=== PATIENT | female | born 1945 | race Caucasian/White ===

== ENCOUNTER 2016-06-06 02:18 | Inpatient (IN) | payer MEDICARE, MEDICAID ==
[~2016-06-06] VITALS: Ht 172.7 cm; Wt 67.1 kg
[~2016-06-06 02:18] MED LIST: HYDR-552 PO
--- NOTE | 2016-06-06 02:27 | NUR ---
PT AAL.OX4 BUT SLOW TO ANSWER, PT STATES SHE TOOK A NORCO AND DRANK 2 GLASSES OF WINE, PT EMS PT WAS FOUND DOWN ON THE BATHROOM FLOOR, PT HAS BRUISING TO THE RIGHT EYEBROW, AND IS C.O LEFT BREAST PAIN AND LEFT UPPER ARM PAIN, PT ON MONITOR, IV PLACED, MD IN ROOM, EKG DONE, WILL CONTINUE TO MONITOR.
[2016-06-06] MEDS ORDERED: IV NS 0.9% 1,000 ML BAG IV ONE (02:30)
[2016-06-06] MEDS ORDERED: IV NS 0.9% 1,000 ML ONE ×2 (02:31→05:12)
[2016-06-06] MEDS ORDERED: IV SET PRIMARY 1 EA INFUS.SET MC ONE ×2 (02:31→03:37)
[2016-06-06 02:43] LABS: BASOPHILS % (AUTO) 0.4 % (0.0-2.0); EOSINOPHILS # (AUTO) 0.1 /CMM (0.0-0.7); EOSINOPHILS % (AUTO) 0.8 % (0.0-6.0); HEMATOCRIT 45 % (33-45); HEMOGLOBIN 14.9 g/dL (11.5-14.8); LYMPHOCYTES # (AUTO) 1.4 /CMM (0.8-4.8); LYMPHOCYTES % (AUTO) 10.4 % (20.0-44.0); MEAN CORPUSCULAR HEMOGLOBIN 28 PG (26.0-33.0); MEAN CORPUSCULAR HGB CONC 33 g/dl (31.0-36.0); MEAN CORPUSCULAR VOLUME 84 fL (82-100); MONOCYTES # (AUTO) 0.6 /CMM (0.1-1.30); MONOCYTES % (AUTO) 4.4 % (2.0-12.0); NEUTROPHILS # (AUTO) 11.1 /CMM (1.8-8.9); PLATELET COUNT (AUTO) 377 /CMM (150-450); RDW COEFFICIENT OF VARIATION 13.9 (11.5-15.0); RED BLOOD CELL COUNT(AUTO) 5.32 MIL/uL (4.0-5.2); WHITE BLOOD COUNT (AUTO) 13.2 K/uL (4.3-11.0)
[2016-06-06 02:59] LABS: ALBUMIN 3.7 g/dL (3.4-5.0); BILIRUBIN,DIRECT 0.1 mg/dL (0.0-0.2); BILIRUBIN,TOTAL 0.3 mg/dL (0.2-1.0); CALCIUM, SERUM 9.6 mg/dL (8.5-10.1); CREATININE 0.7 mg/dL (0.6-1.3); POTASSIUM 2.9 mmol/L (3.5-5.1); TOTAL PROTEIN, SERUM 7.7 g/dL (6.4-8.2)
[2016-06-06 03:00] LABS: INR 0.94 (0.87-1.13)
[2016-06-06] MEDS ORDERED: HYDROMORPHONE 1 MG/1 ML DISP.SYRIN IV ONE (03:30)
[2016-06-06] MEDS ORDERED: CEFTRIAXONE 1 G in IV D5W 50 ML IV ONE (03:30)
[2016-06-06] MEDS ORDERED: HYDROMORPHONE 1 MG/1 ML DISP.SYRIN ONE ×2 (03:36→06:46)
[2016-06-06] MEDS ORDERED: CEFTRIAXONE 1GM BAG (ER ONLY) 50 ML IV ONE (03:37)
[2016-06-06] MEDS ORDERED: ZOLPIDEM TARTRATE 5 MG TABLET PO PRN (04:00)
[2016-06-06] MEDS ORDERED: HYDROCODONE/APAP 5/325MG 1 EACH TABLET PO PRN (04:00)
[2016-06-06] MEDS ORDERED: ACETAMINOPHEN 325 MG TABLET PO PRN (04:00)
[2016-06-06] MEDS ORDERED: HYDROCODONE/APAP 10/325MG 1 EA TABLET PO PRN (04:00)
[2016-06-06] MEDS ORDERED: MAGNESIUM HYDROXIDE 30 ML UDC PO PRN (04:00)
[2016-06-06] MEDS ORDERED: Z GUARD REMEDY 2 OZ OINT TP PRN (04:00)
[2016-06-06] MEDS ORDERED: MAG HYDROX/AL HYDROX/SIMETH 30 ML UDC PO PRN (04:00)
[2016-06-06 04:35] VITALS: BP 145/92
[2016-06-06] MEDS ORDERED: ONDANSETRON HCL/PF 4 MG/2 ML VIAL ONE (04:44)
[2016-06-06] MEDS ORDERED: IV SET PRIMARY PUMP SET 1 EA INFUS.SET MC ONE (04:44)
[2016-06-06] MEDS: ONDANSETRON HCL/PF 4 MG/2 ML VIAL IVP PRN ×4 (04:49→21:23)
[2016-06-06 05:00] LABS: PHOSPHORUS 2.7 mg/dL (2.5-4.9)
[2016-06-06] MEDS: IV NS 0.9% 1,000 ML IV PRN ×2 (05:18→21:23)
--- NOTE | 2016-06-06 06:51 | NUR ---
MS RN NOTES RECEIVED PTS FROM ER NURSE A 70 YEARS OLD FEMALE A/O X4 ABLE TO MAKE NEEDS KNOWN , NO SOB NO DISTRESS NOTED, WITH ADMITTING DX OF MASTITIS , ALL NEEDS ATTENDED TOO CALL LIGHT WITHIN REACH KEPT PTS CLEAN DRY AND COMFORTABLE ON RFA G#18 WITH NS AT 75CC/HR INFUSING WELL , WILL ENDORSE TO RN DAY SHIFT FOR CONTINUITY OF CARE
[2016-06-06] MEDS: HYDROMORPHONE 1 MG/1 ML DISP.SYRIN IV PRN ×3 (06:55→21:24)
--- NOTE | 2016-06-06 07:15 | NUR ---
RN INITIAL NOTE PT RECEIVED IN BED, RESTING COMFORTABLY. AWAKE, ALERT AND ORIENTED. ABLE TO MAKE NEEDS KNOWN. NO S/S OF PAIN DOES HAVE NAUSEA. RESPIRATIONS ARE EVEN AND UNLABORED. NO S/S OF RESPIRATORY DISTRESS OR SOB. SKIN IS WARM AND DRY TO TOUCH. IV SITE FLUSHED AND PATENT. DRESSING C/D/I. SAFETY PRECAUTIONS IMPLEMENTED. BED IN LOCKED, LOW POSITION. TWO SIDE RAILS UP. BELONGINGS AND CALL LIGHT WITHIN REACH. WILL CONTINUE TO MONITOR.
--- NOTE | 2016-06-06 07:32 | NUR ---
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
[2016-06-06 08:00] VITALS: BP 116/79
[2016-06-06] MEDS: PANTOPRAZOLE 40 MG TABLET.DR PO SCH (08:02)
[2016-06-06] MEDS ORDERED: POTASSIUM CHLORIDE 20 MEQ TAB.PRT.SR PO ONE (09:13)
[2016-06-06] MEDS ORDERED: VANCOMYCIN 1 GM in IV D5W 250 ML IV SCH (10:30)
[2016-06-06] MEDS: HYDROCODONE/APAP 10/325MG 1 EA TABLET PO PRN (11:10)
[2016-06-06] MEDS ORDERED: FEE PK DOSING 1 MIN EA MC ONE (11:23)
[2016-06-06] MEDS ORDERED: SECONDARY IV SET 1 EA INFUS.SET MC ONE (12:51)
[2016-06-06] MEDS: VANCOMYCIN 0.75 GM in IV D5W 250 ML IV SCH (12:53)
[2016-06-06 16:00] VITALS: BP 139/79
--- NOTE | 2016-06-06 19:13 | NUR ---
RN CLOSING NOTE PT RESTING IN BED COMFORTABLY. ALL MD ORDERS CARRIED OUT. PATIENT KEPT CLEAN AND DRY. SAFETY PRECAUTIONS IN PLACE AT ALL TIMES. WILL GIVE REPORT TO PM RN FOR BRIGETTE.
[2016-06-06 20:00] VITALS: BP 142/82
[2016-06-07] MEDS: VANCOMYCIN 0.75 GM in IV D5W 250 ML IV SCH ×2 (00:51→12:46)
--- NOTE | 2016-06-07 01:44 | NUR ---
RN NOTES: THE PREVIOUS IV ACCESS IS REMOVED BECAUSE OF INFILTRATION. NEW IV ACCESS GAUGE 22 IS ESTABLISHED ON THE LEFT FOREARM. WILL CONTINUE TO MONITOR.
[2016-06-07] MEDS: HYDROMORPHONE 1 MG/1 ML DISP.SYRIN IV PRN ×3 (02:03→10:40)
[2016-06-07] MEDS ORDERED: CEFTRIAXONE 1 G in IV D5W 50 ML IV SCH (03:00)
[2016-06-07] MEDS ORDERED: SECONDARY IV SET 1 EA INFUS.SET MC ONE (03:29)
[2016-06-07 04:00] VITALS: BP 138/82
[2016-06-07 07:14] LABS: CALCIUM, SERUM 9.3 mg/dL (8.5-10.1); CREATININE 0.5 mg/dL (0.6-1.3); POTASSIUM 4.1 mmol/L (3.5-5.1)
[2016-06-07 07:25] LABS: BASOPHILS % (AUTO) 0.4 % (0.0-2.0); EOSINOPHILS # (AUTO) 0.1 /CMM (0.0-0.7); EOSINOPHILS % (AUTO) 0.8 % (0.0-6.0); HEMATOCRIT 37 % (33-45); HEMOGLOBIN 12.2 g/dL (11.5-14.8); LYMPHOCYTES # (AUTO) 1.2 /CMM (0.8-4.8); LYMPHOCYTES % (AUTO) 16.9 % (20.0-44.0); MEAN CORPUSCULAR HEMOGLOBIN 28 PG (26.0-33.0); MEAN CORPUSCULAR HGB CONC 33 g/dl (31.0-36.0); MEAN CORPUSCULAR VOLUME 85 fL (82-100); MONOCYTES # (AUTO) 0.7 /CMM (0.1-1.30); MONOCYTES % (AUTO) 10.1 % (2.0-12.0); NEUTROPHILS # (AUTO) 5.2 /CMM (1.8-8.9); NEUTROPHILS % (AUTO) 71.8 % (43.0-81.0); PLATELET COUNT (AUTO) 288 /CMM (150-450); RDW COEFFICIENT OF VARIATION 13.6 (11.5-15.0); RED BLOOD CELL COUNT(AUTO) 4.36 MIL/uL (4.0-5.2); WHITE BLOOD COUNT (AUTO) 7.2 K/uL (4.3-11.0)
[2016-06-07] MEDS: PANTOPRAZOLE 40 MG TABLET.DR PO SCH (07:30)
[2016-06-07 08:00] VITALS: BP 140/84
--- NOTE | 2016-06-07 13:29 | NUR ---
patient noted in stable condition.all due medication as well as nursing care given and well tolerated.patient discharge instruction noted.patient states that she wants pain medication prescription ,dr bagley notified.and said that he doesn't want to give the pain medication prescription because the patient came for drug overdose .dr kearney notified.
[2016-06-07] MEDS: HYDROCODONE/APAP 10/325MG 1 EA TABLET PO PRN (14:05)
--- NOTE | 2016-06-07 14:29 | NUR ---
Wicho douglass wrote prescription for pain medication.patient discharged at this point.in stable condition.
== END 2016-06-07 15:30 | disposition home or self-care (01) | DRG 917 ==
LOC: ER 02:19 → MEDSG1 04:22
PROVIDERS: ADMIT Nurse Practitioner Acute Care; ATTEND Family Medicine
DX: T40.2X1A Poisoning by other opioids, accidental (unintentional), initial encounter (principal); G92 Toxic encephalopathy; F10.129 Alcohol abuse with intoxication, unspecified; Y90.7 Blood alcohol level of 200-239 mg/100 ml; C50.911 Malignant neoplasm of unspecified site of right female breast; F17.210 Nicotine dependence, cigarettes, uncomplicated; E87.6 Hypokalemia; D72.829 Elevated white blood cell count, unspecified; G89.4 Chronic pain syndrome; Z96.643 Presence of artificial hip joint, bilateral; Y92.9 Unspecified place or not applicable
CPT/HCPCS: 36415; 70450-TC; 72125-TC; 80048-TC; 80076-TC; 83735-TC; 84100-TC; 85025-TC; 85730-TC; 87081-TC; A4606; A6403; G0480; G6039-TC; J0696; J1170; J2405; J3370; J7030; J7060; L0172; Z7610

== ENCOUNTER 2022-10-12 10:08 | Inpatient (IN) | payer MEDICARE, OTHER ==
[~2022-10-12] VITALS: Ht 172.7 cm; Wt 61.2 kg
[~2022-10-12 10:08] MED LIST changes: +HYDR-4384 PO; -HYDR-552 PO
[2022-10-12] MEDS ORDERED: MORPHINE SULFATE INJ 2 MG/ML DISP.SYRIN IV ONE (11:00)
[2022-10-12] MEDS ORDERED: MORPHINE SULFATE INJ 4 MG/ML DISP.SYRIN ONE (11:04)
[2022-10-12] MEDS ORDERED: DIPH25TA25 PO (11:06)
[2022-10-12 11:19] LABS: CARBON DIOXIDE 27 mmol/L (21-32); CHLORIDE 96 mmol/L (98-107); CREATININE 0.7 mg/dL (0.6-1.3); GLUCOSE 119 mg/dL (74-106); POTASSIUM 4.1 mmol/L (3.5-5.1); SODIUM SERUM 134 mmol/L (136-145); UREA NITROGEN, BLOOD 13 mg/dL (7-18)
[2022-10-12 11:20] LABS: BASOPHILS % (AUTO) 0.7 % (0.0-2.0); EOSINOPHILS # (AUTO) 0.1 K/uL (0.0-0.7); EOSINOPHILS % (AUTO) 2.3 % (0.0-6.0); HEMATOCRIT 36 % (33-45); HEMOGLOBIN 11.7 g/dL (11.5-14.8); LYMPHOCYTES # (AUTO) 1.3 K/uL (0.8-4.8); LYMPHOCYTES % (AUTO) 21.1 % (20.0-44.0); MEAN CORPUSCULAR HEMOGLOBIN 28 PG (26.0-33.0); MEAN CORPUSCULAR HGB CONC 33 g/dl (31.0-36.0); MEAN CORPUSCULAR VOLUME 84 fL (82-100); MONOCYTES # (AUTO) 0.6 K/uL (0.1-1.30); MONOCYTES % (AUTO) 10.1 % (2.0-12.0); NEUTROPHILS # (AUTO) 4.2 K/uL (1.8-8.9); NEUTROPHILS % (AUTO) 65.8 % (43.0-81.0); PLATELET COUNT (AUTO) 232 K/uL (150-450); RED BLOOD CELL COUNT(AUTO) 4.23 MIL/uL (4.0-5.2); WHITE BLOOD COUNT (AUTO) 6.3 K/uL (4.3-11.0)
[2022-10-12 11:24] LABS: INR 0.98 (0.91-1.10); PARTIAL THROMBOPLASTIN TIME 24.6 SEC (24.3-34.3); PROTHROMBIN TIME 10.3 SECS (9.2-11.1)
[2022-10-12 11:27] LABS: ALANINE AMINOTRANSFERASE 42 U/L (12-78); ALBUMIN 2.6 g/dL (3.4-5.0); ALKALINE PHOSPHATASE 236 U/L (46-116); ASPARTATE AMINOTRANSFERASE 80 U/L (15-37); BILIRUBIN,DIRECT 0.2 mg/dL (0.0-0.2); BILIRUBIN,TOTAL 0.5 mg/dL (0.2-1.0)
[2022-10-12 11:30] LABS: MAGNESIUM 2.1 mg/dL (1.8-2.4)
[2022-10-12 11:33] LABS: THYROID STIMULATING HORMONE 4.414 uIU/mL (0.358-3.74)
[2022-10-12 12:15] LABS: BAND % (MANUAL) 5 % (0.0-5.0); EOSINOPHILS % (MANUAL) 3 % (0-4); LYMPHOCYTES % (MANUAL) 16 % (16-48); MONOCYTES % (MANUAL) 7 % (0-11.0); MYELOCYTES % 2 % (0-0); NEUTROPHILS % (MANUAL) 67 (42-76); PLATELET ESTIMATE DECREASED
[2022-10-12] MEDS ORDERED: METOPROLOL SUCCINATE 50 MG TAB.SR.24H PO SCH (12:30)
[2022-10-12] MEDS ORDERED: IV NS 0.9% 1,000 ML IV ONE (12:30)
[2022-10-12] MEDS ORDERED: ZOLPIDEM TARTRATE 5 MG TABLET PO PRN (13:30)
[2022-10-12] MEDS ORDERED: Z GUARD REMEDY 4 OZ OINT TP PRN (13:30)
[2022-10-12] MEDS ORDERED: MAGNESIUM HYDROXIDE 30 ML UDC PO PRN (13:30)
[2022-10-12] MEDS ORDERED: HYDROCODONE/APAP 5/325MG TABLET PO PRN (13:30)
[2022-10-12] MEDS ORDERED: ONDANSETRON HCL/PF 4 MG/2 ML VIAL IVP PRN (13:30)
[2022-10-12] MEDS ORDERED: ACETAMINOPHEN 325 MG TABLET PO PRN (13:30)
[2022-10-12] MEDS ORDERED: MAG HYDROX/AL HYDROX/SIMETH 30 ML UDC PO PRN (13:30)
[2022-10-12 14:59] LABS: APPEARANCE,URINE SLIGHTLY CLOUDY (CLEAR); BILIRUBIN,URINE NEGATIVE (NEGATIVE); BLOOD, URINE TRACE-INTA Ery/uL (NEGATIVE); COLOR,URINE YELLOW (YELLOW); KETONES,URINE NEGATIVE (NEGATIVE); LEUKOCYTE ESTERASE ,URINE 1+ (NEGATIVE); NITRITE, URINE POSITIVE (NEGATIVE); PROTEIN,URINE NEGATIVE (NEGATIVE); UGLUCOSE NEGATIVE (NEGATIVE); UROBILINOGEN,URINE 0.2 EU/dL (0.2)
[2022-10-12 15:14] LABS: ADD URINE CULTURE YES; BACTERIA,URINE 3+ /HPF (None Seen); SQUAMOUS EPITHELIAL CELL,UR 0-2 /HPF (None Seen); URINE AMORPHOUS URATE Few /HPF (None Seen)
[2022-10-12] MEDS: ENOXAPARIN SODIUM 40 MG/0.4 ML DISP.SYRIN SQ SCH (15:59)
[2022-10-12 16:00] VITALS: BP 119/73; TEMP 97.9; O2SAT 92
[2022-10-12] MEDS: IV NS 0.9% 1,000 ML IV PRN (17:30)
[2022-10-12] MEDS ORDERED: PAMIDRONATE 90 MG in IV NS 0.9% 500 ML IV ONE (18:00)
[2022-10-12 20:00] VITALS: BP 128/81; TEMP 97.7; O2SAT 91
[2022-10-12] MEDS: MORPHINE SULFATE INJ 2 MG/ML DISP.SYRIN IV PRN (23:04)
[2022-10-13] MEDS: MORPHINE SULFATE INJ 2 MG/ML DISP.SYRIN IV PRN ×3 (05:12→22:29)
[2022-10-13 07:19] LABS: BASOPHILS % (AUTO) 0.6 % (0.0-2.0); EOSINOPHILS # (AUTO) 0.1 K/uL (0.0-0.7); EOSINOPHILS % (AUTO) 2.4 % (0.0-6.0); HEMATOCRIT 30 % (33-45); HEMOGLOBIN 10.1 g/dL (11.5-14.8); LYMPHOCYTES # (AUTO) 1.2 K/uL (0.8-4.8); LYMPHOCYTES % (AUTO) 25.6 % (20.0-44.0); MEAN CORPUSCULAR HEMOGLOBIN 28 PG (26.0-33.0); MEAN CORPUSCULAR HGB CONC 33 g/dl (31.0-36.0); MEAN CORPUSCULAR VOLUME 84 fL (82-100); MONOCYTES # (AUTO) 0.4 K/uL (0.1-1.30); MONOCYTES % (AUTO) 9.2 % (2.0-12.0); NEUTROPHILS # (AUTO) 2.8 K/uL (1.8-8.9); NEUTROPHILS % (AUTO) 62.2 % (43.0-81.0); PLATELET COUNT (AUTO) 170 K/uL (150-450); RED CELL DISTRIBUTION WIDTH 19.2 % (11.5-15.0); WHITE BLOOD COUNT (AUTO) 4.5 K/uL (4.3-11.0)
[2022-10-13] MEDS: PANTOPRAZOLE 40 MG TABLET.DR PO SCH ×2 (07:30→08:09)
[2022-10-13 07:47] LABS: ALBUMIN 2.3 g/dL (3.4-5.0); CALCIUM, SERUM 10.8 mg/dL (8.5-10.1); CARBON DIOXIDE 28 mmol/L (21-32); CHLORIDE 101 mmol/L (98-107); CREATININE 0.5 mg/dL (0.6-1.3); GLUCOSE 81 mg/dL (74-106); MAGNESIUM 1.9 mg/dL (1.8-2.4); PHOSPHORUS 2.9 mg/dL (2.5-4.9); POTASSIUM 3.2 mmol/L (3.5-5.1); SODIUM SERUM 137 mmol/L (136-145); UREA NITROGEN, BLOOD 10 mg/dL (7-18)
[2022-10-13 08:00] VITALS: BP 113/62; TEMP 98.3; O2SAT 94
[2022-10-13 08:01] LABS: CHOLESTEROL 119 mg/dL (<200); HDL CHOLESTEROL 33 mg/dL (40-60); LDL 67 mg/dL (0-99); THYROID STIMULATING HORMONE 6.315 uIU/mL (0.358-3.74); TRIGLYCERIDES 150 mg/dL (30-150)
[2022-10-13 08:58] LABS: BAND % (MANUAL) 3 % (0.0-5.0); EOSINOPHILS % (MANUAL) 2 % (0-4); LYMPHOCYTES % (MANUAL) 26 % (16-48); METAMYELOCYTES % 1 % (0-0); MONOCYTES % (MANUAL) 4 % (0-11.0); MYELOCYTES % 7 % (0-0); NEUTROPHILS % (MANUAL) 57 (42-76); PLATELET ESTIMATE ADEQUATE
[2022-10-13] MEDS: CEFTRIAXONE 1 G in IV D5W 50 ML IV SCH (10:24)
[2022-10-13] MEDS: IV NS 0.9% 1,000 ML IV PRN (10:33)
[2022-10-13] MEDS: POTASSIUM CHLORIDE 20 MEQ TAB.PRT.SR PO SCH ×2 (10:38→11:22)
[2022-10-13 10:52] LABS: IRON, SERUM 108 ug/dl (50-175); TOTAL IRON BINDING CAPACITY 180 ug/dl (250-450)
[2022-10-13 11:33] LABS: FERRITIN 1531 ng/mL (8-388)
[2022-10-13 12:40] LABS: PROTEIN, BODY FLUID 2.9 G/DL
[2022-10-13] MEDS: ENOXAPARIN SODIUM 40 MG/0.4 ML DISP.SYRIN SQ SCH (13:52)
[2022-10-13 16:00] VITALS: BP 146/74; TEMP 98; O2SAT 98
[2022-10-13 19:14] LABS: APPEARANCE,SPUN,BODY FLUID CLEAR (CLEAR); TOTAL VOLUME,BODY FLUID 61 mL
[2022-10-13 21:29] VITALS: BP 144/87; TEMP 98.2; O2SAT 94
[2022-10-13 22:27] LABS: MACROPHAGES, BODY FLUID 1; MONOCYTES,BODY FLUID 3 %; POLYNUCLEAR, BODY FLUID 0 % (0-25); WBC, BODY FLUID 285 /cu. mm. (0-200)
[2022-10-14 00:24] VITALS: BP 119/71; TEMP 98.2; O2SAT 92
[2022-10-14] MEDS: IV NS 0.9% 1,000 ML IV PRN (01:32)
[2022-10-14 04:31] VITALS: BP 148/82; TEMP 97.9; O2SAT 95
[2022-10-14] MEDS: MORPHINE SULFATE INJ 2 MG/ML DISP.SYRIN IV PRN (06:21)
[2022-10-14 07:07] LABS: IMMUNOGLOBULIN A, SERUM 98 mg/dL (64-422); IMMUNOGLOBULIN G, SERUM 900 mg/dL (586-1602); IMMUNOGLOBULIN M, SERUM 86 mg/dL (26-217)
[2022-10-14 07:14] LABS: BASOPHILS % (AUTO) 0.5 % (0.0-2.0); EOSINOPHILS # (AUTO) 0.1 K/uL (0.0-0.7); EOSINOPHILS % (AUTO) 2.4 % (0.0-6.0); HEMATOCRIT 30 % (33-45); HEMOGLOBIN 10.3 g/dL (11.5-14.8); LYMPHOCYTES % (AUTO) 20.9 % (20.0-44.0); MEAN CORPUSCULAR HEMOGLOBIN 28 PG (26.0-33.0); MEAN CORPUSCULAR HGB CONC 34 g/dl (31.0-36.0); MEAN CORPUSCULAR VOLUME 83 fL (82-100); MONOCYTES # (AUTO) 0.4 K/uL (0.1-1.30); MONOCYTES % (AUTO) 9.1 % (2.0-12.0); NEUTROPHILS # (AUTO) 3.2 K/uL (1.8-8.9); NEUTROPHILS % (AUTO) 67.1 % (43.0-81.0); PLATELET COUNT (AUTO) 166 K/uL (150-450); RED BLOOD CELL COUNT(AUTO) 3.65 MIL/uL (4.0-5.2); RED CELL DISTRIBUTION WIDTH 19.4 % (11.5-15.0); WHITE BLOOD COUNT (AUTO) 4.8 K/uL (4.3-11.0)
[2022-10-14 07:31] LABS: ALANINE AMINOTRANSFERASE 32 U/L (12-78); ALBUMIN 2.3 g/dL (3.4-5.0); ALKALINE PHOSPHATASE 208 U/L (46-116); ASPARTATE AMINOTRANSFERASE 77 U/L (15-37); BILIRUBIN,TOTAL 0.7 mg/dL (0.2-1.0); CALCIUM, SERUM 9.6 mg/dL (8.5-10.1); CARBON DIOXIDE 27 mmol/L (21-32); CHLORIDE 101 mmol/L (98-107); CREATININE 0.4 mg/dL (0.6-1.3); GLUCOSE 102 mg/dL (74-106); POTASSIUM 3.2 mmol/L (3.5-5.1); SODIUM SERUM 135 mmol/L (136-145); TOTAL PROTEIN, SERUM 5.2 g/dL (6.4-8.2); UREA NITROGEN, BLOOD 6 mg/dL (7-18)
[2022-10-14 08:00] VITALS: BP 108/64; TEMP 97.7; O2SAT 95
[2022-10-14] MEDS: CEFTRIAXONE 1 G in IV D5W 50 ML IV SCH (08:26)
[2022-10-14] MEDS: PANTOPRAZOLE 40 MG TABLET.DR PO SCH (08:26)
[2022-10-14] MEDS: POTASSIUM CHLORIDE 20 MEQ POWDER PACKET PO ONE ×2 (08:35→09:06)
[2022-10-14] MEDS ORDERED: POTASSIUM CHLORIDE 20 MEQ TAB.PRT.SR PO ONE (09:30)
[2022-10-14 10:07] LABS: *SPE A/G RATIO 1.2 (0.7-1.7); *SPE ALPHA-1-GLOBULIN 0.2 g/dL (0.0-0.4); *SPE ALPHA-2-GLOBULIN 0.7 g/dL (0.4-1.0); *SPE BETA GLOBULIN 0.8 g/dL (0.7-1.3); *SPE GLOBULIN, TOTAL 2.5 g/dL (2.2-3.9); *SPE M-SPIKE Not Observed g/dL (Not Observed); *SPE PROTEIN TOTAL 5.5 g/dL (6.0-8.5); *SPEGAMMA GLOBULIN 0.7 g/dL (0.4-1.8)
[2022-10-14] MEDS: ENOXAPARIN SODIUM 40 MG/0.4 ML DISP.SYRIN SQ SCH (13:34)
[2022-10-14 16:00] VITALS: BP 116/71; TEMP 98.1; O2SAT 95
[2022-10-14 20:00] VITALS: BP 105/67; TEMP 97.4; O2SAT 92
[2022-10-15] MEDS: IV NS 0.9% 1,000 ML IV PRN ×2 (00:56→17:15)
[2022-10-15 05:57] LABS: INR 0.99 (0.91-1.10); PARTIAL THROMBOPLASTIN TIME 32.5 SEC (24.3-34.3); PROTHROMBIN TIME 10.4 SECS (9.2-11.1)
[2022-10-15 06:08] LABS: ALANINE AMINOTRANSFERASE 32 U/L (12-78); ALKALINE PHOSPHATASE 199 U/L (46-116); ASPARTATE AMINOTRANSFERASE 74 U/L (15-37); BILIRUBIN,TOTAL 0.4 mg/dL (0.2-1.0); CALCIUM, SERUM 8.8 mg/dL (8.5-10.1); CARBON DIOXIDE 26 mmol/L (21-32); CHLORIDE 106 mmol/L (98-107); CREATININE 0.4 mg/dL (0.6-1.3); GLUCOSE 95 mg/dL (74-106); POTASSIUM 3.7 mmol/L (3.5-5.1); SODIUM SERUM 138 mmol/L (136-145); TOTAL PROTEIN, SERUM 4.8 g/dL (6.4-8.2); UREA NITROGEN, BLOOD 10 mg/dL (7-18)
[2022-10-15 07:30] VITALS: BP 114/75; TEMP 97.7; O2SAT 94
[2022-10-15] MEDS: PANTOPRAZOLE 40 MG TABLET.DR PO SCH (08:43)
[2022-10-15] MEDS: CEFTRIAXONE 1 G in IV D5W 50 ML IV SCH (09:28)
[2022-10-15] MEDS: MORPHINE SULFATE INJ 2 MG/ML DISP.SYRIN IV PRN ×3 (09:48→21:38)
[2022-10-15] MEDS ORDERED: IOHEXOL-300 100 ML VIAL IV ONE (11:00)
[2022-10-15] MEDS ORDERED: CT SWABBABLE VALVE TRANS SET 1 EA INFUS.SET MC ONE (11:00)
[2022-10-15] MEDS: ENOXAPARIN SODIUM 40 MG/0.4 ML DISP.SYRIN SQ SCH (14:50)
[2022-10-15 16:00] VITALS: BP 127/67; TEMP 97.9; O2SAT 94
[2022-10-15 20:00] VITALS: BP_SYST 120; BP_DIAS 75; BP_DIAS 79; TEMP 97.8; O2SAT 93
[2022-10-16 05:48] LABS: BASOPHILS % (AUTO) 0.5 % (0.0-2.0); EOSINOPHILS # (AUTO) 0.1 K/uL (0.0-0.7); EOSINOPHILS % (AUTO) 2.6 % (0.0-6.0); HEMATOCRIT 28 % (33-45); HEMOGLOBIN 9.2 g/dL (11.5-14.8); LYMPHOCYTES % (AUTO) 23.7 % (20.0-44.0); MEAN CORPUSCULAR HEMOGLOBIN 28 PG (26.0-33.0); MEAN CORPUSCULAR HGB CONC 33 g/dl (31.0-36.0); MEAN CORPUSCULAR VOLUME 84 fL (82-100); MONOCYTES # (AUTO) 0.4 K/uL (0.1-1.30); MONOCYTES % (AUTO) 9.8 % (2.0-12.0); NEUTROPHILS # (AUTO) 2.7 K/uL (1.8-8.9); NEUTROPHILS % (AUTO) 63.4 % (43.0-81.0); PLATELET COUNT (AUTO) 151 K/uL (150-450); RED BLOOD CELL COUNT(AUTO) 3.29 MIL/uL (4.0-5.2); RED CELL DISTRIBUTION WIDTH 19.6 % (11.5-15.0); WHITE BLOOD COUNT (AUTO) 4.3 K/uL (4.3-11.0)
[2022-10-16 06:07] LABS: ALANINE AMINOTRANSFERASE 34 U/L (12-78); ALKALINE PHOSPHATASE 194 U/L (46-116); ASPARTATE AMINOTRANSFERASE 75 U/L (15-37); BILIRUBIN,TOTAL 0.4 mg/dL (0.2-1.0); CALCIUM, SERUM 8.5 mg/dL (8.5-10.1); CARBON DIOXIDE 25 mmol/L (21-32); CHLORIDE 104 mmol/L (98-107); CREATININE 0.5 mg/dL (0.6-1.3); GLUCOSE 92 mg/dL (74-106); POTASSIUM 3.6 mmol/L (3.5-5.1); SODIUM SERUM 136 mmol/L (136-145); TOTAL PROTEIN, SERUM 4.7 g/dL (6.4-8.2); UREA NITROGEN, BLOOD 12 mg/dL (7-18)
[2022-10-16] MEDS: IV NS 0.9% 1,000 ML IV PRN (06:27)
[2022-10-16 07:30] VITALS: BP 119/75; TEMP 98.2; O2SAT 94
[2022-10-16] MEDS: PANTOPRAZOLE 40 MG TABLET.DR PO SCH (07:30)
[2022-10-16] MEDS: MORPHINE SULFATE INJ 2 MG/ML DISP.SYRIN IV PRN ×2 (09:16→18:19)
[2022-10-16] MEDS: CEFTRIAXONE 1 G in IV D5W 50 ML IV SCH (09:20)
[2022-10-16] MEDS: diphenhydrAMINE HCL 50 MG/ML VIAL IV PRN ×2 (10:57→18:19)
[2022-10-16] MEDS ORDERED: POLYVINYL ALCOHOL 15 ML BOTTLE EACHEYE PRN (13:00)
[2022-10-16] MEDS: ENOXAPARIN SODIUM 40 MG/0.4 ML DISP.SYRIN SQ SCH (13:30)
[2022-10-16 16:00] VITALS: BP 121/72; TEMP 98.4; O2SAT 90
[2022-10-16 20:29] VITALS: BP 127/76; TEMP 98.6; O2SAT 93
[2022-10-17] MEDS: IV NS 0.9% 1,000 ML IV PRN (04:04)
[2022-10-17 05:46] LABS: HEMATOCRIT 28 % (33-45); HEMOGLOBIN 9.2 g/dL (11.5-14.8); MEAN CORPUSCULAR HEMOGLOBIN 28 PG (26.0-33.0); MEAN CORPUSCULAR HGB CONC 34 g/dl (31.0-36.0); MEAN CORPUSCULAR VOLUME 84 fL (82-100); RED BLOOD CELL COUNT(AUTO) 3.28 MIL/uL (4.0-5.2); RED CELL DISTRIBUTION WIDTH 19.9 % (11.5-15.0); WHITE BLOOD COUNT (AUTO) 4.5 K/uL (4.3-11.0)
[2022-10-17 05:47] LABS: BASOPHILS % (AUTO) 0.6 % (0.0-2.0); EOSINOPHILS # (AUTO) 0.1 K/uL (0.0-0.7); EOSINOPHILS % (AUTO) 2.7 % (0.0-6.0); LYMPHOCYTES # (AUTO) 1.1 K/uL (0.8-4.8); LYMPHOCYTES % (AUTO) 24.5 % (20.0-44.0); MONOCYTES # (AUTO) 0.5 K/uL (0.1-1.30); MONOCYTES % (AUTO) 10.4 % (2.0-12.0); NEUTROPHILS # (AUTO) 2.8 K/uL (1.8-8.9); NEUTROPHILS % (AUTO) 61.8 % (43.0-81.0); PLATELET COUNT (AUTO) 144 K/uL (150-450)
[2022-10-17 06:02] LABS: ALANINE AMINOTRANSFERASE 36 U/L (12-78); ALKALINE PHOSPHATASE 199 U/L (46-116); ASPARTATE AMINOTRANSFERASE 84 U/L (15-37); BILIRUBIN,TOTAL 0.5 mg/dL (0.2-1.0); CALCIUM, SERUM 8.3 mg/dL (8.5-10.1); CARBON DIOXIDE 26 mmol/L (21-32); CHLORIDE 105 mmol/L (98-107); CREATININE 0.4 mg/dL (0.6-1.3); GLUCOSE 83 mg/dL (74-106); POTASSIUM 3.6 mmol/L (3.5-5.1); SODIUM SERUM 139 mmol/L (136-145); TOTAL PROTEIN, SERUM 4.9 g/dL (6.4-8.2); UREA NITROGEN, BLOOD 10 mg/dL (7-18)
[2022-10-17] MEDS: PANTOPRAZOLE 40 MG TABLET.DR PO SCH ×2 (07:30→08:35)
[2022-10-17 08:00] VITALS: BP 123/73; TEMP 99; O2SAT 93
[2022-10-17] MEDS: CEFTRIAXONE 1 G in IV D5W 50 ML IV SCH (08:43)
[2022-10-17] MEDS: MORPHINE SULFATE INJ 2 MG/ML DISP.SYRIN IV PRN ×2 (09:47→14:52)
[2022-10-17 13:06] LABS: FREE KAPPA LT CHAINS SERUM 18.7 mg/L (3.3-19.4); FREE LAMBDA LT CHAIN SERUM 13.8 mg/L (5.7-26.3); KAPPA/LAMBDA RATIO SERUM 1.36 (0.26-1.65)
[2022-10-17] MEDS: ENOXAPARIN SODIUM 40 MG/0.4 ML DISP.SYRIN SQ SCH (13:30)
== END 2022-10-17 15:00 | DRG 543 ==
LOC: ER 10:30 → MED 13:11
PROVIDERS: ATTEND Internal Medicine
PROC: 0W9B3ZZ Drainage of Left Pleural Cavity, Percutaneous Approach (ICD-10-PCS; principal; 2022-10-13)
DX: M84.372A Stress fracture, left ankle, initial encounter for fracture (principal); E44.0 Moderate protein-calorie malnutrition; C79.9 Secondary malignant neoplasm of unspecified site; J90 Pleural effusion, not elsewhere classified; J98.11 Atelectasis; S93.402A Sprain of unspecified ligament of left ankle, initial encounter; E83.52 Hypercalcemia; W19.XXXA Unspecified fall, initial encounter; Z20.822 Contact with and (suspected) exposure to COVID-19; D64.9 Anemia, unspecified; R53.1 Weakness; E03.9 Hypothyroidism, unspecified; M19.90 Unspecified osteoarthritis, unspecified site; Z85.3 Personal history of malignant neoplasm of breast; Z85.828 Personal history of other malignant neoplasm of skin; E88.09 Other disorders of plasma-protein metabolism, not elsewhere classified; E67.3 Hypervitaminosis D; C50.911 Malignant neoplasm of unspecified site of right female breast; Z68.20 Body mass index [BMI] 20.0-20.9, adult; R62.7 Adult failure to thrive; Z91.81 History of falling; M85.872 Other specified disorders of bone density and structure, left ankle and foot; X58.XXXA Exposure to other specified factors, initial encounter; Y93.9 Activity, unspecified; Y92.009 Unspecified place in unspecified non-institutional (private) residence as the place of occurrence of the external cause; Z96.642 Presence of left artificial hip joint
CPT/HCPCS: 36415; 71045-TC; 73502; 73552; 73590-TC; 73610-TC; 73721-TC; 76641-TC; 80048-TC; 80053-TC; 80061-TC; 80076-TC; 81001; 82040-TC; 82306; 82378; 82607-TC; 82728-TC; 82784; 83540-TC; 83735-TC; 83880; 83970; 84100-TC; 84155; 84165; 84439-TC; 84443-TC; 84484-TC; 85025-TC; 85610-TC; 85730-TC; 86300; 86334; 87086-TC; 88108-TC; 88305-TC; 88312-TC; 88341; 88342; 88360; 89051-TC; 93970-TC; 97110-TC; 97116-TC; 97530-TC; A4223; A6253; A6403; G0378; J0696; J1200; J1650; J2270; J2405; J2430; J7030; J7040; J7060; Q9967

== ENCOUNTER 2022-11-08 12:08 | Inpatient (IN) | payer MEDICARE, OTHER ==
[~2022-11-08] VITALS: Ht 170.2 cm; Wt 59.4 kg
[2022-11-08 13:15] LABS: BASOPHILS # (AUTO) 0.1 K/uL (0.0-0.2); BASOPHILS % (AUTO) 1.5 % (0.0-2.0); EOSINOPHILS # (AUTO) 0.1 K/uL (0.0-0.7); EOSINOPHILS % (AUTO) 1.5 % (0.0-6.0); HEMATOCRIT 33 % (33-45); HEMOGLOBIN 10.8 g/dL (11.5-14.8); LYMPHOCYTES # (AUTO) 1.4 K/uL (0.8-4.8); LYMPHOCYTES % (AUTO) 24.4 % (20.0-44.0); MEAN CORPUSCULAR HEMOGLOBIN 29 PG (26.0-33.0); MEAN CORPUSCULAR HGB CONC 33 g/dl (31.0-36.0); MEAN CORPUSCULAR VOLUME 88 fL (82-100); MONOCYTES # (AUTO) 0.6 K/uL (0.1-1.30); MONOCYTES % (AUTO) 10.6 % (2.0-12.0); NEUTROPHILS # (AUTO) 3.5 K/uL (1.8-8.9); PLATELET COUNT (AUTO) 162 K/uL (150-450); RED BLOOD CELL COUNT(AUTO) 3.74 MIL/uL (4.0-5.2); RED CELL DISTRIBUTION WIDTH 22.5 % (11.5-15.0); WHITE BLOOD COUNT (AUTO) 5.7 K/uL (4.3-11.0)
[2022-11-08 13:16] VITALS: O2SAT 94
[2022-11-08] MEDS ORDERED: POLY15DR40 EACHEYE (13:16)
[2022-11-08] MEDS ORDERED: IVER3TAB2 PO (13:16)
[2022-11-08] MEDS ORDERED: ENOX40DI SQ (13:16)
[2022-11-08] MEDS ORDERED: ASCO-495 PO (13:16)
[2022-11-08] MEDS ORDERED: LACT-215 PO (13:16)
[2022-11-08] MEDS ORDERED: HYDR28.32 TP (13:16)
[2022-11-08] MEDS ORDERED: PANT40TA2 PO (13:16)
[2022-11-08] MEDS ORDERED: ZOLP5TAB8 PO (13:16)
[2022-11-08] MEDS ORDERED: DOCU-141 PO (13:16)
[2022-11-08] MEDS ORDERED: CHOL100043 PO (13:16)
[2022-11-08] MEDS ORDERED: PRED20TA PO (13:16)
[2022-11-08] MEDS ORDERED: MAGN400O6 PO (13:16)
[2022-11-08] MEDS ORDERED: AMIN30LI2 PO (13:16)
[2022-11-08] MEDS ORDERED: MULT-447 PO (13:16)
[2022-11-08] MEDS ORDERED: NA P133E RC (13:16)
[2022-11-08] MEDS ORDERED: CLOB15OI3 TP (13:16)
[2022-11-08] MEDS ORDERED: PERM60CR4 TP (13:16)
[2022-11-08] MEDS ORDERED: DIPH25CA51 PO (13:16)
[2022-11-08] MEDS ORDERED: BISA10SU11 RC (13:16)
[2022-11-08] MEDS ORDERED: OXYC5TAB3 PO (13:16)
[2022-11-08] MEDS ORDERED: MAG30ORA PO (13:16)
[2022-11-08] MEDS ORDERED: PETR113O TP (13:19)
[2022-11-08] MEDS ORDERED: POVI1MED TP (13:19)
[2022-11-08 13:28] LABS: ALANINE AMINOTRANSFERASE 37 U/L (12-78); ALBUMIN 2.3 g/dL (3.4-5.0); ALKALINE PHOSPHATASE 213 U/L (46-116); ASPARTATE AMINOTRANSFERASE 90 U/L (15-37); BILIRUBIN,DIRECT 0.3 mg/dL (0.0-0.2); BILIRUBIN,TOTAL 0.6 mg/dL (0.2-1.0); CALCIUM, SERUM 10.6 mg/dL (8.5-10.1); CARBON DIOXIDE 28 mmol/L (21-32); CHLORIDE 98 mmol/L (98-107); GLUCOSE 96 mg/dL (74-106); POTASSIUM 3.5 mmol/L (3.5-5.1); TOTAL PROTEIN, SERUM 5.6 g/dL (6.4-8.2); UREA NITROGEN, BLOOD 10 mg/dL (7-18)
[2022-11-08 13:32] LABS: CREATININE 0.5 mg/dL (0.6-1.3); SODIUM SERUM 132 mmol/L (136-145)
[2022-11-08 16:00] VITALS: BP 114/78; TEMP 98.1; O2SAT 90
[2022-11-08] MEDS ORDERED: MAG HYDROX/AL HYDROX/SIMETH 30 ML UDC PO PRN (16:00)
[2022-11-08] MEDS ORDERED: ONDANSETRON HCL/PF 4 MG/2 ML VIAL IVP PRN (16:00)
[2022-11-08] MEDS ORDERED: ACETAMINOPHEN 325 MG TABLET PO PRN (16:00)
[2022-11-08 16:20] VITALS: BP 114/78; TEMP 98.1
[2022-11-08 20:00] VITALS: BP 124/82; TEMP 98.2; O2SAT 95
[2022-11-08] MEDS: MORPHINE SULFATE INJ 2 MG/ML DISP.SYRIN IV PRN (21:44)
[2022-11-09] VITALS: BP 121/96; TEMP 98.1; O2SAT 95
[2022-11-09 05:19] VITALS: BP 131/88; TEMP 97.7; O2SAT 95
[2022-11-09 05:59] LABS: BASOPHILS % (AUTO) 0.7 % (0.0-2.0); EOSINOPHILS # (AUTO) 0.1 K/uL (0.0-0.7); EOSINOPHILS % (AUTO) 1.4 % (0.0-6.0); HEMATOCRIT 33 % (33-45); HEMOGLOBIN 10.8 g/dL (11.5-14.8); LYMPHOCYTES # (AUTO) 1.5 K/uL (0.8-4.8); LYMPHOCYTES % (AUTO) 30.2 % (20.0-44.0); MEAN CORPUSCULAR HEMOGLOBIN 29 PG (26.0-33.0); MEAN CORPUSCULAR HGB CONC 33 g/dl (31.0-36.0); MEAN CORPUSCULAR VOLUME 89 fL (82-100); MONOCYTES # (AUTO) 0.6 K/uL (0.1-1.30); MONOCYTES % (AUTO) 12.1 % (2.0-12.0); NEUTROPHILS # (AUTO) 2.8 K/uL (1.8-8.9); NEUTROPHILS % (AUTO) 55.6 % (43.0-81.0); PLATELET COUNT (AUTO) 159 K/uL (150-450); RED BLOOD CELL COUNT(AUTO) 3.72 MIL/uL (4.0-5.2); RED CELL DISTRIBUTION WIDTH 22.6 % (11.5-15.0); WHITE BLOOD COUNT (AUTO) 5.1 K/uL (4.3-11.0)
[2022-11-09 06:19] LABS: CALCIUM, SERUM 10.7 mg/dL (8.5-10.1); CARBON DIOXIDE 29 mmol/L (21-32); CHLORIDE 96 mmol/L (98-107); CREATININE 0.4 mg/dL (0.6-1.3); GLUCOSE 83 mg/dL (74-106); MAGNESIUM 2.2 mg/dL (1.8-2.4); PHOSPHORUS 3.4 mg/dL (2.5-4.9); POTASSIUM 3.6 mmol/L (3.5-5.1); SODIUM SERUM 134 mmol/L (136-145); UREA NITROGEN, BLOOD 11 mg/dL (7-18)
[2022-11-09] MEDS ORDERED: BUPIVACAINE 0.5 % PF 150 MG/30 ML VIAL ONE (07:48)
[2022-11-09] MEDS ORDERED: LIDOCAINE 1% INJ 50 ML MDV IJ ONE (07:48)
[2022-11-09] MEDS ORDERED: POLYMYXIN B SULFATE 0 UNITS ONE (07:48)
[2022-11-09] MEDS ORDERED: ANESTHESIA TRAY IN PYXIS 1 EA TRAY MC ONE (07:48)
[2022-11-09 08:00] VITALS: BP 121/79; TEMP 97.5; O2SAT 96
[2022-11-09] MEDS ORDERED: FENTANYL PF 100MCG/2ML AMPUL ONE (09:23)
[2022-11-09] MEDS ORDERED: MIDAZOLAM HCL 2 MG/2ML VIAL ONE (09:23)
[2022-11-09 11:50] LABS: INR 0.96 (0.91-1.10); PROTHROMBIN TIME 10.2 SECS (9.2-11.1)
[2022-11-09 12:00] VITALS: BP 134/90; TEMP 98.6; O2SAT 96
[2022-11-09] MEDS: MORPHINE SULFATE INJ 2 MG/ML DISP.SYRIN IV PRN ×2 (13:01→18:47)
[2022-11-09] MEDS ORDERED: PAMIDRONATE 90 MG in IV NS 0.9% 500 ML IV ONE (15:00)
[2022-11-09 15:47] LABS: THYROID STIMULATING HORMONE 5.547 uIU/mL (0.358-3.74)
[2022-11-09 16:00] VITALS: BP 126/87; TEMP 97.3; O2SAT 98
[2022-11-09 20:00] VITALS: BP 133/85; TEMP 97.5; O2SAT 98
[2022-11-10] VITALS: BP 127/86; TEMP 98.2; O2SAT 98
[2022-11-10] MEDS: MORPHINE SULFATE INJ 2 MG/ML DISP.SYRIN IV PRN (02:21)
[2022-11-10 06:25] LABS: BASOPHILS % (AUTO) 0.6 % (0.0-2.0); EOSINOPHILS # (AUTO) 0.1 K/uL (0.0-0.7); EOSINOPHILS % (AUTO) 1.1 % (0.0-6.0); HEMATOCRIT 30 % (33-45); HEMOGLOBIN 10.2 g/dL (11.5-14.8); LYMPHOCYTES # (AUTO) 1.3 K/uL (0.8-4.8); LYMPHOCYTES % (AUTO) 26.3 % (20.0-44.0); MEAN CORPUSCULAR HEMOGLOBIN 29 PG (26.0-33.0); MEAN CORPUSCULAR HGB CONC 33 g/dl (31.0-36.0); MEAN CORPUSCULAR VOLUME 88 fL (82-100); MONOCYTES # (AUTO) 0.5 K/uL (0.1-1.30); MONOCYTES % (AUTO) 10.5 % (2.0-12.0); NEUTROPHILS # (AUTO) 3.1 K/uL (1.8-8.9); NEUTROPHILS % (AUTO) 61.5 % (43.0-81.0); PLATELET COUNT (AUTO) 152 K/uL (150-450); RED BLOOD CELL COUNT(AUTO) 3.48 MIL/uL (4.0-5.2); RED CELL DISTRIBUTION WIDTH 22.4 % (11.5-15.0)
[2022-11-10 07:07] LABS: INR 0.97 (0.91-1.10); PARTIAL THROMBOPLASTIN TIME 27.6 SEC (24.3-34.3); PROTHROMBIN TIME 10.3 SECS (9.2-11.1)
[2022-11-10 07:30] VITALS: BP 129/79; TEMP 98.6; O2SAT 98
[2022-11-10 16:00] VITALS: BP 110/74; TEMP 98.6; O2SAT 93
[2022-11-10 19:00] VITALS: BP 116/77; TEMP 98; O2SAT 97
[2022-11-11 05:54] LABS: BASOPHILS % (AUTO) 0.6 % (0.0-2.0); EOSINOPHILS # (AUTO) 0.1 K/uL (0.0-0.7); EOSINOPHILS % (AUTO) 2.8 % (0.0-6.0); HEMATOCRIT 33 % (33-45); HEMOGLOBIN 10.6 g/dL (11.5-14.8); LYMPHOCYTES # (AUTO) 0.9 K/uL (0.8-4.8); LYMPHOCYTES % (AUTO) 20.7 % (20.0-44.0); MEAN CORPUSCULAR HEMOGLOBIN 29 PG (26.0-33.0); MEAN CORPUSCULAR HGB CONC 33 g/dl (31.0-36.0); MEAN CORPUSCULAR VOLUME 89 fL (82-100); MONOCYTES # (AUTO) 0.5 K/uL (0.1-1.30); MONOCYTES % (AUTO) 10.9 % (2.0-12.0); NEUTROPHILS # (AUTO) 2.8 K/uL (1.8-8.9); PLATELET COUNT (AUTO) 159 K/uL (150-450); RED BLOOD CELL COUNT(AUTO) 3.67 MIL/uL (4.0-5.2); RED CELL DISTRIBUTION WIDTH 22.6 % (11.5-15.0); WHITE BLOOD COUNT (AUTO) 4.3 K/uL (4.3-11.0)
[2022-11-11 06:05] LABS: ALBUMIN 2.1 g/dL (3.4-5.0)
[2022-11-11 06:14] LABS: CARBON DIOXIDE 29 mmol/L (21-32); CHLORIDE 96 mmol/L (98-107); CREATININE 0.4 mg/dL (0.6-1.3); GLUCOSE 108 mg/dL (74-106); MAGNESIUM 2.2 mg/dL (1.8-2.4); PHOSPHORUS 2.4 mg/dL (2.5-4.9); POTASSIUM 3.8 mmol/L (3.5-5.1); SODIUM SERUM 132 mmol/L (136-145); UREA NITROGEN, BLOOD 12 mg/dL (7-18)
[2022-11-11 07:30] VITALS: BP 118/79; TEMP 97.5; O2SAT 99
[2022-11-11] MEDS: MORPHINE SULFATE INJ 2 MG/ML DISP.SYRIN IV PRN ×2 (09:54→22:22)
[2022-11-11] MEDS ORDERED: NEUTRA PHOS 1 POWD.PACKET PO ONE (16:00)
[2022-11-11 20:00] VITALS: BP 121/82; TEMP 97.4; O2SAT 97
[2022-11-11 21:00] VITALS: BP 121/82; TEMP 97.4; O2SAT 97
[2022-11-12] VITALS: BP 123/78; TEMP 98.2; O2SAT 96
[2022-11-12 06:05] VITALS: BP 137/89; TEMP 97.7; O2SAT 99
[2022-11-12] MEDS: MORPHINE SULFATE INJ 2 MG/ML DISP.SYRIN IV PRN ×3 (06:11→20:48)
[2022-11-12 08:06] LABS: CALCIUM, SERUM 9.6 mg/dL (8.5-10.1); CARBON DIOXIDE 25 mmol/L (21-32); CHLORIDE 92 mmol/L (98-107); CREATININE 0.5 mg/dL (0.6-1.3); GLUCOSE 105 mg/dL (74-106); POTASSIUM 4.3 mmol/L (3.5-5.1); SODIUM SERUM 129 mmol/L (136-145); UREA NITROGEN, BLOOD 12 mg/dL (7-18)
[2022-11-12] MEDS ORDERED: LIDOCAINE 1%-EPI 1:100,000 20 ML VIAL TP ONE (11:30)
[2022-11-12] MEDS ORDERED: SILVER NITRATE APPLICATOR 1 EA BOX TP ONE (11:30)
[2022-11-12 12:00] VITALS: BP 130/80; TEMP 97.7; O2SAT 97
[2022-11-12 12:50] LABS: BASOPHILS # (AUTO) 0.1 K/uL (0.0-0.2); BASOPHILS % (AUTO) 1.1 % (0.0-2.0); EOSINOPHILS # (AUTO) 0.2 K/uL (0.0-0.7); EOSINOPHILS % (AUTO) 2.9 % (0.0-6.0); HEMATOCRIT 34 % (33-45); HEMOGLOBIN 10.9 g/dL (11.5-14.8); LYMPHOCYTES # (AUTO) 1.2 K/uL (0.8-4.8); LYMPHOCYTES % (AUTO) 23.8 % (20.0-44.0); MEAN CORPUSCULAR HEMOGLOBIN 29 PG (26.0-33.0); MEAN CORPUSCULAR HGB CONC 32 g/dl (31.0-36.0); MEAN CORPUSCULAR VOLUME 90 fL (82-100); MONOCYTES # (AUTO) 0.6 K/uL (0.1-1.30); MONOCYTES % (AUTO) 12.3 % (2.0-12.0); NEUTROPHILS # (AUTO) 3.1 K/uL (1.8-8.9); NEUTROPHILS % (AUTO) 59.9 % (43.0-81.0); PLATELET COUNT (AUTO) 173 K/uL (150-450); RED BLOOD CELL COUNT(AUTO) 3.79 MIL/uL (4.0-5.2); RED CELL DISTRIBUTION WIDTH 23.4 % (11.5-15.0); WHITE BLOOD COUNT (AUTO) 5.2 K/uL (4.3-11.0)
[2022-11-12 16:14] VITALS: BP 148/83; TEMP 97.8; O2SAT 90
[2022-11-12 20:00] VITALS: BP 111/72; TEMP 98.2; O2SAT 93
[2022-11-13 00:13] VITALS: BP 115/73; TEMP 97.6; O2SAT 94
[2022-11-13] MEDS: MORPHINE SULFATE INJ 2 MG/ML DISP.SYRIN IV PRN (00:31)
[2022-11-13 05:26] VITALS: BP 112/76; TEMP 97.8; O2SAT 94
[2022-11-13 06:12] LABS: BASOPHILS % (AUTO) 0.6 % (0.0-2.0); EOSINOPHILS # (AUTO) 0.1 K/uL (0.0-0.7); EOSINOPHILS % (AUTO) 2.9 % (0.0-6.0); HEMATOCRIT 30 % (33-45); LYMPHOCYTES # (AUTO) 1.2 K/uL (0.8-4.8); LYMPHOCYTES % (AUTO) 25.7 % (20.0-44.0); MEAN CORPUSCULAR HEMOGLOBIN 29 PG (26.0-33.0); MEAN CORPUSCULAR HGB CONC 33 g/dl (31.0-36.0); MEAN CORPUSCULAR VOLUME 88 fL (82-100); MONOCYTES # (AUTO) 0.5 K/uL (0.1-1.30); MONOCYTES % (AUTO) 11.7 % (2.0-12.0); NEUTROPHILS # (AUTO) 2.7 K/uL (1.8-8.9); NEUTROPHILS % (AUTO) 59.1 % (43.0-81.0); PLATELET COUNT (AUTO) 159 K/uL (150-450); RED BLOOD CELL COUNT(AUTO) 3.46 MIL/uL (4.0-5.2); RED CELL DISTRIBUTION WIDTH 22.1 % (11.5-15.0); WHITE BLOOD COUNT (AUTO) 4.6 K/uL (4.3-11.0)
[2022-11-13 06:39] LABS: ALANINE AMINOTRANSFERASE 22 U/L (12-78); ALBUMIN 1.9 g/dL (3.4-5.0); ALKALINE PHOSPHATASE 167 U/L (46-116); ASPARTATE AMINOTRANSFERASE 65 U/L (15-37); BILIRUBIN,TOTAL 0.5 mg/dL (0.2-1.0); CALCIUM, SERUM 9.2 mg/dL (8.5-10.1); CARBON DIOXIDE 30 mmol/L (21-32); CHLORIDE 94 mmol/L (98-107); CREATININE 0.5 mg/dL (0.6-1.3); GLUCOSE 94 mg/dL (74-106); MAGNESIUM 1.9 mg/dL (1.8-2.4); PHOSPHORUS 2.3 mg/dL (2.5-4.9); SODIUM SERUM 130 mmol/L (136-145); UREA NITROGEN, BLOOD 11 mg/dL (7-18)
[2022-11-13 08:43] VITALS: BP 118/75; TEMP 98.4; O2SAT 93
[2022-11-13] MEDS ORDERED: K PHOS NEUTRAL 250 MG TABLET PO ONE (09:30)
[2022-11-13] MEDS: PROSOURCE / PROSTAT (PYXIS) 30 ML UDC PO SCH ×3 (13:43→17:00)
[2022-11-13 14:01] LABS: BAND % (MANUAL) 1 % (0.0-5.0); LYMPHOCYTES % (MANUAL) 25 % (16-48); MONOCYTES % (MANUAL) 11 % (0-11.0); NEUTROPHILS % (MANUAL) 63 (42-76)
[2022-11-13 14:02] LABS: ANISOCYTOSIS 1+; PLATELET ESTIMATE ADEQUATE
[2022-11-13 15:55] VITALS: BP 109/72; TEMP 98.8; O2SAT 98
== END 2022-11-13 20:35 | DRG 584 ==
LOC: ER 12:13 → TELE 14:25
PROVIDERS: ADMIT Nurse Practitioner Acute Care; ATTEND Nurse Practitioner Acute Care
PROC: 0W9B30Z Drainage of Left Pleural Cavity with Drainage Device, Percutaneous Approach (ICD-10-PCS; principal; 2022-11-09)
PROC: 0HBT0ZX Excision of Right Breast, Open Approach, Diagnostic (ICD-10-PCS; 2022-11-12)
DX: C50.911 Malignant neoplasm of unspecified site of right female breast (principal); G93.41 Metabolic encephalopathy; C78.7 Secondary malignant neoplasm of liver and intrahepatic bile duct; E46 Unspecified protein-calorie malnutrition; J91.0 Malignant pleural effusion; C79.82 Secondary malignant neoplasm of genital organs; D68.59 Other primary thrombophilia; C79.51 Secondary malignant neoplasm of bone; E87.1 Hypo-osmolality and hyponatremia; J93.9 Pneumothorax, unspecified; J94.8 Other specified pleural conditions; R18.8 Other ascites; M84.475A Pathological fracture, left foot, initial encounter for fracture; E88.09 Other disorders of plasma-protein metabolism, not elsewhere classified; R62.7 Adult failure to thrive; E83.52 Hypercalcemia; D64.9 Anemia, unspecified; E03.9 Hypothyroidism, unspecified; E83.39 Other disorders of phosphorus metabolism; M85.80 Other specified disorders of bone density and structure, unspecified site; S30.0XXA Contusion of lower back and pelvis, initial encounter; X58.XXXA Exposure to other specified factors, initial encounter; Y93.9 Activity, unspecified; Y92.129 Unspecified place in nursing home as the place of occurrence of the external cause; Z74.01 Bed confinement status; Z88.6 Allergy status to analgesic agent; M19.90 Unspecified osteoarthritis, unspecified site; Z96.642 Presence of left artificial hip joint
CPT/HCPCS: 36415; 71045-TC; 71260-TC; 80048-TC; 80053-TC; 80076-TC; 82040-TC; 82378; 82533; 82728-TC; 83540-TC; 83735-TC; 84100-TC; 84439-TC; 84443-TC; 84484-TC; 85025-TC; 85610-TC; 85730-TC; 86300; 86304; 87081-TC; A4223; A4649; A6253; A6403; C1769; G0378; J2250; J2270; J2430; J2704; J3010; J3490; J7040; J7050

== ENCOUNTER 2022-11-27 19:23 | Inpatient (IN) | payer MEDICARE, OTHER ==
[~2022-11-27] VITALS: Ht 172.7 cm; Wt 58.1 kg
[~2022-11-27 19:23] MED LIST changes: +AMIN30LI2 PO; +ASCO-495 PO; +BISA10SU11 RC; +CHOL100043 PO; +CLOB15OI3 TP; +DIPH25CA51 PO; +DOCU-141 PO; +ENOX40DI SQ; -HYDR-4384 PO; +HYDR28.32 TP; +IVER3TAB2 PO; +LACT-215 PO; +MAG30ORA PO; +MAGN400O6 PO; +MULT-447 PO; +NA P133E RC; +OXYC5TAB3 PO; +PANT40TA2 PO; +PERM60CR4 TP; +PETR113O TP; +POLY15DR40 EACHEYE; +POVI1MED TP; +PRED20TA PO; +ZOLP5TAB8 PO
[2022-11-27] MEDS ORDERED: IV NS 0.9% 1,000 ML BAG IV ONE ×2 (20:30→22:30)
[2022-11-27] MEDS ORDERED: CEFEPIME 2 GM in IV D5W 50 ML IV ONE (20:30)
[2022-11-27] MEDS ORDERED: VANCOMYCIN 1 GM in IV D5W 250 ML IV ONE (20:30)
[2022-11-27] MEDS ORDERED: CEFEPIME 1 GM VIAL ONE (20:49)
[2022-11-27] MEDS ORDERED: VANCOMYCIN 1 GM /D5W 250 ML PB IV ONE (20:50)
[2022-11-27 21:56] LABS: CALCIUM, SERUM 10.8 mg/dL (8.5-10.1); CARBON DIOXIDE 18 mmol/L (21-32); CHLORIDE 89 mmol/L (98-107); CREATININE 0.6 mg/dL (0.6-1.3); GLUCOSE 81 mg/dL (74-106); POTASSIUM 5.1 mmol/L (3.5-5.1); SODIUM SERUM 127 mmol/L (136-145); UREA NITROGEN, BLOOD 33 mg/dL (7-18)
[2022-11-27 21:58] LABS: BASOPHILS % (AUTO) 0.4 % (0.0-2.0); EOSINOPHILS % (AUTO) 0.2 % (0.0-6.0); HEMATOCRIT 41 % (33-45); LYMPHOCYTES # (AUTO) 1.6 K/uL (0.8-4.8); LYMPHOCYTES % (AUTO) 25.4 % (20.0-44.0); MEAN CORPUSCULAR HEMOGLOBIN 29 PG (26.0-33.0); MEAN CORPUSCULAR HGB CONC 32 g/dl (31.0-36.0); MEAN CORPUSCULAR VOLUME 91 fL (82-100); MONOCYTES # (AUTO) 0.3 K/uL (0.1-1.30); MONOCYTES % (AUTO) 4.1 % (2.0-12.0); NEUTROPHILS # (AUTO) 4.5 K/uL (1.8-8.9); NEUTROPHILS % (AUTO) 69.9 % (43.0-81.0); PLATELET COUNT (AUTO) 169 K/uL (150-450); RED BLOOD CELL COUNT(AUTO) 4.47 MIL/uL (4.0-5.2); RED CELL DISTRIBUTION WIDTH 21.7 % (11.5-15.0); WHITE BLOOD COUNT (AUTO) 6.4 K/uL (4.3-11.0)
[2022-11-27 22:01] LABS: ALANINE AMINOTRANSFERASE 26 U/L (12-78); ALKALINE PHOSPHATASE 166 U/L (46-116); ASPARTATE AMINOTRANSFERASE 78 U/L (15-37); BILIRUBIN,DIRECT 0.4 mg/dL (0.0-0.2); INR 1.07 (0.91-1.10); PARTIAL THROMBOPLASTIN TIME 33.6 SEC (24.3-34.3); PROTHROMBIN TIME 11.3 SECS (9.2-11.1); TOTAL PROTEIN, SERUM 5.1 g/dL (6.4-8.2)
[2022-11-27 22:28] LABS: APPEARANCE,URINE SLIGHTLY CLOUDY (CLEAR); BILIRUBIN,URINE 1+ (NEGATIVE); BLOOD, URINE 1+ Ery/uL (NEGATIVE); COLOR,URINE YELLOW (YELLOW); KETONES,URINE 2+ mg/dL (NEGATIVE); LEUKOCYTE ESTERASE ,URINE 3+ (NEGATIVE); NITRITE, URINE POSITIVE (NEGATIVE); PROTEIN,URINE TRACE mg/dl (NEGATIVE); UGLUCOSE NEGATIVE (NEGATIVE)
[2022-11-27 22:32] LABS: ADD URINE CULTURE YES; BACTERIA,URINE 3+ /HPF (None Seen); WBC,URINE 51-80 /HPF (0-3)
[2022-11-27] MEDS ORDERED: MORPHINE SULFATE INJ 2 MG/ML DISP.SYRIN IV ONE (23:00)
[2022-11-27] MEDS ORDERED: MORPHINE SULFATE INJ 4 MG/ML DISP.SYRIN ONE (23:04)
[2022-11-27 23:39] LABS: BAND % (MANUAL) 16 % (0.0-5.0); LYMPHOCYTES % (MANUAL) 21 % (16-48); MONOCYTES % (MANUAL) 6 % (0-11.0); MYELOCYTES % 1 % (0-0); NEUTROPHILS % (MANUAL) 55 (42-76); PLATELET ESTIMATE ADEQUATE; REACTIVE LYMPHOCYTES 1 % (0-0)
[2022-11-27 23:40] LABS: ANISOCYTOSIS 1+; OVALOCYTES 1+
[2022-11-28] MEDS ORDERED: ACETAMINOPHEN 325 MG TABLET PO PRN (01:00)
[2022-11-28] MEDS ORDERED: ZOLPIDEM TARTRATE 5 MG TABLET PO PRN (01:00)
[2022-11-28] MEDS ORDERED: Z GUARD REMEDY 4 OZ OINT TP PRN (01:00)
[2022-11-28] MEDS ORDERED: IV 1/2NS 1000 ML 1,000 ML IV ONE (01:00)
[2022-11-28] MEDS ORDERED: MAG HYDROX/AL HYDROX/SIMETH 30 ML UDC PO PRN (01:00)
[2022-11-28] MEDS ORDERED: MAGNESIUM HYDROXIDE 30 ML UDC PO PRN (01:00)
[2022-11-28 01:33] VITALS: BP 99/70; TEMP 97.5; O2SAT 98
[2022-11-28] MEDS: ENOXAPARIN SODIUM 40 MG/0.4 ML DISP.SYRIN SQ SCH ×2 (02:17→21:57)
[2022-11-28 04:00] VITALS: BP 91/63; TEMP 97; O2SAT 98
[2022-11-28] MEDS ORDERED: CEFEPIME 1 GM VIAL ONE (04:00)
[2022-11-28] MEDS: CEFEPIME 2 GM in IV D5W 100 ML IV SCH ×3 (04:45→20:24)
[2022-11-28 07:45] LABS: BASOPHILS % (AUTO) 0.3 % (0.0-2.0); EOSINOPHILS # (AUTO) 0.1 K/uL (0.0-0.7); EOSINOPHILS % (AUTO) 1.1 % (0.0-6.0); HEMATOCRIT 35 % (33-45); HEMOGLOBIN 11.5 g/dL (11.5-14.8); LYMPHOCYTES # (AUTO) 1.2 K/uL (0.8-4.8); LYMPHOCYTES % (AUTO) 22.5 % (20.0-44.0); MEAN CORPUSCULAR HEMOGLOBIN 30 PG (26.0-33.0); MEAN CORPUSCULAR HGB CONC 33 g/dl (31.0-36.0); MEAN CORPUSCULAR VOLUME 91 fL (82-100); MONOCYTES # (AUTO) 0.2 K/uL (0.1-1.30); MONOCYTES % (AUTO) 3.3 % (2.0-12.0); NEUTROPHILS # (AUTO) 3.7 K/uL (1.8-8.9); NEUTROPHILS % (AUTO) 72.8 % (43.0-81.0); PLATELET COUNT (AUTO) 149 K/uL (150-450); RED BLOOD CELL COUNT(AUTO) 3.88 MIL/uL (4.0-5.2); RED CELL DISTRIBUTION WIDTH 21.7 % (11.5-15.0); WHITE BLOOD COUNT (AUTO) 5.1 K/uL (4.3-11.0)
[2022-11-28 08:00] VITALS: BP 95/64; TEMP 98; O2SAT 94
[2022-11-28 08:09] LABS: CALCIUM, SERUM 9.5 mg/dL (8.5-10.1); CREATININE 0.5 mg/dL (0.6-1.3); GLUCOSE 122 mg/dL (74-106); MAGNESIUM 2.4 mg/dL (1.8-2.4); PHOSPHORUS 2.7 mg/dL (2.5-4.9); UREA NITROGEN, BLOOD 25 mg/dL (7-18)
[2022-11-28] MEDS ORDERED: LETR2.5T8 PO (08:14)
[2022-11-28] MEDS ORDERED: CALC60OI4 TP (08:14)
[2022-11-28] MEDS ORDERED: ZINC50TA65 PO (08:14)
[2022-11-28] MEDS ORDERED: IBUP-1953 PO (08:14)
[2022-11-28] MEDS ORDERED: CLON0.1T PO (08:14)
[2022-11-28] MEDS ORDERED: CRAN3875 PO (08:14)
[2022-11-28] MEDS ORDERED: SENN-261 PO (08:14)
[2022-11-28] MEDS ORDERED: ARGI1POW13 PO (08:14)
[2022-11-28 08:16] LABS: CARBON DIOXIDE 19 mmol/L (21-32); CHLORIDE 97 mmol/L (98-107); POTASSIUM 4.1 mmol/L (3.5-5.1); SODIUM SERUM 132 mmol/L (136-145)
[2022-11-28] MEDS ORDERED: PANTOPRAZOLE 40 MG VIAL IV SCH (09:00)
[2022-11-28] MEDS: VANCOMYCIN HCL 0.75 GM in IV D5W 250 ML IV SCH ×2 (09:30→21:47)
[2022-11-28 10:31] LABS: BAND % (MANUAL) 13 % (0.0-5.0); EOSINOPHILS % (MANUAL) 1 % (0-4); LYMPHOCYTES % (MANUAL) 17 % (16-48); MONOCYTES % (MANUAL) 1 % (0-11.0); NEUTROPHILS % (MANUAL) 68 (42-76)
[2022-11-28 10:32] LABS: ANISOCYTOSIS 2+; OVALOCYTES 1+; PLATELET ESTIMATE DECREASED
[2022-11-28] MEDS: ONDANSETRON HCL/PF 4 MG/2 ML VIAL IVP PRN ×2 (11:17→17:17)
[2022-11-28 12:00] VITALS: BP 99/66; TEMP 97.9; O2SAT 92
[2022-11-28 16:00] VITALS: BP 108/69; TEMP 97.6; O2SAT 96
[2022-11-28] MEDS ORDERED: PAMIDRONATE 30 MG in IV NS 0.9% 500 ML IV ONE (19:30)
[2022-11-28 20:00] VITALS: BP 103/79; TEMP 97.5; TEMP 97.7; O2SAT 98
[2022-11-29] VITALS (7 sets, daily range): BP systolic 89–107; BP diastolic 62–87; TEMP 97.3–98.1; O2SAT 95–99
[2022-11-29] MEDS: CEFEPIME 2 GM in IV D5W 100 ML IV SCH ×2 (05:31→16:42)
[2022-11-29] MEDS: LETROZOLE 2.5 MG TABLET PO SCH (09:00)
[2022-11-29] MEDS: MULTIVIT W/MINERALS 1 TAB TABLET PO SCH (09:00)
[2022-11-29] MEDS: PANTOPRAZOLE 40 MG TABLET.DR PO SCH (09:00)
[2022-11-29 09:01] LABS: EOSINOPHILS % (AUTO) 0.2 % (0.0-6.0); HEMATOCRIT 33 % (33-45); HEMOGLOBIN 10.8 g/dL (11.5-14.8); LYMPHOCYTES # (AUTO) 1.1 K/uL (0.8-4.8); MEAN CORPUSCULAR HEMOGLOBIN 30 PG (26.0-33.0); MEAN CORPUSCULAR HGB CONC 32 g/dl (31.0-36.0); MEAN CORPUSCULAR VOLUME 92 fL (82-100); MONOCYTES # (AUTO) 0.3 K/uL (0.1-1.30); MONOCYTES % (AUTO) 5.7 % (2.0-12.0); NEUTROPHILS # (AUTO) 3.7 K/uL (1.8-8.9); NEUTROPHILS % (AUTO) 73.1 % (43.0-81.0); PLATELET COUNT (AUTO) 97 K/uL (150-450); RED BLOOD CELL COUNT(AUTO) 3.62 MIL/uL (4.0-5.2); WHITE BLOOD COUNT (AUTO) 5.1 K/uL (4.3-11.0)
[2022-11-29 09:30] LABS: CALCIUM, SERUM 10.4 mg/dL (8.5-10.1); CARBON DIOXIDE 21 mmol/L (21-32); CHLORIDE 99 mmol/L (98-107); CREATININE 0.3 mg/dL (0.6-1.3); GLUCOSE 102 mg/dL (74-106); MAGNESIUM 2.5 mg/dL (1.8-2.4); POTASSIUM 3.2 mmol/L (3.5-5.1); SODIUM SERUM 133 mmol/L (136-145); UREA NITROGEN, BLOOD 18 mg/dL (7-18)
[2022-11-29] MEDS: VANCOMYCIN HCL 0.75 GM in IV D5W 250 ML IV SCH ×2 (09:46→20:07)
[2022-11-29 10:36] LABS: ANISOCYTOSIS 2+; BAND % (MANUAL) 3 % (0.0-5.0); LYMPHOCYTES % (MANUAL) 17 % (16-48); MONOCYTES % (MANUAL) 5 % (0-11.0); NEUTROPHILS % (MANUAL) 75 (42-76); PLATELET ESTIMATE DECREASED
[2022-11-29 10:37] LABS: OVALOCYTES 1+
[2022-11-29] MEDS: IV NS 0.9% 1,000 ML IV PRN (12:32)
[2022-11-29] MEDS: POTASSIUM CL. PREMIX PERIPHER. 50 ML IV SCH ×4 (12:33→15:42)
[2022-11-29] MEDS ORDERED: Sodium Phosphate 15 MMOL in IV NS 0.9% 245 ML IV SCH (18:00)
[2022-11-29] MEDS: MUPIROCIN OINT 2% 22 GM TUBE NS SCH (20:07)
[2022-11-29] MEDS: ENOXAPARIN SODIUM 40 MG/0.4 ML DISP.SYRIN SQ SCH (21:45)
[2022-11-30] MEDS: CEFEPIME 2 GM in IV D5W 100 ML IV SCH ×3 (00:34→17:58)
[2022-11-30 06:48] LABS: ALBUMIN 1.5 g/dL (3.4-5.0); CALCIUM, SERUM 10.6 mg/dL (8.5-10.1); CARBON DIOXIDE 23 mmol/L (21-32); CHLORIDE 104 mmol/L (98-107); CREATININE 0.5 mg/dL (0.6-1.3); GLUCOSE 93 mg/dL (74-106); MAGNESIUM 2.3 mg/dL (1.8-2.4); PHOSPHORUS 2.3 mg/dL (2.5-4.9); POTASSIUM 3.6 mmol/L (3.5-5.1); SODIUM SERUM 136 mmol/L (136-145); UREA NITROGEN, BLOOD 15 mg/dL (7-18)
[2022-11-30 07:10] LABS: BASOPHILS % (AUTO) 0.1 % (0.0-2.0); EOSINOPHILS % (AUTO) 0.2 % (0.0-6.0); HEMATOCRIT 33 % (33-45); HEMOGLOBIN 10.7 g/dL (11.5-14.8); LYMPHOCYTES # (AUTO) 1.1 K/uL (0.8-4.8); LYMPHOCYTES % (AUTO) 19.7 % (20.0-44.0); MEAN CORPUSCULAR HEMOGLOBIN 30 PG (26.0-33.0); MEAN CORPUSCULAR HGB CONC 32 g/dl (31.0-36.0); MEAN CORPUSCULAR VOLUME 93 fL (82-100); MONOCYTES # (AUTO) 0.4 K/uL (0.1-1.30); MONOCYTES % (AUTO) 7.2 % (2.0-12.0); NEUTROPHILS # (AUTO) 4.1 K/uL (1.8-8.9); NEUTROPHILS % (AUTO) 72.8 % (43.0-81.0); PLATELET COUNT (AUTO) 94 K/uL (150-450); RED CELL DISTRIBUTION WIDTH 22.5 % (11.5-15.0); WHITE BLOOD COUNT (AUTO) 5.6 K/uL (4.3-11.0)
[2022-11-30 08:00] VITALS: BP 104/75; TEMP 97.9; O2SAT 97
[2022-11-30] MEDS: LETROZOLE 2.5 MG TABLET PO SCH (08:48)
[2022-11-30] MEDS: PANTOPRAZOLE 40 MG TABLET.DR PO SCH (08:48)
[2022-11-30] MEDS: MULTIVIT W/MINERALS 1 TAB TABLET PO SCH (08:49)
[2022-11-30] MEDS: MUPIROCIN OINT 2% 22 GM TUBE NS SCH ×2 (09:27→21:04)
[2022-11-30] MEDS: VANCOMYCIN HCL 0.75 GM in IV D5W 250 ML IV SCH ×2 (09:27→21:04)
[2022-11-30 09:39] LABS: ANISOCYTOSIS 1+; LYMPHOCYTES % (MANUAL) 21 % (16-48); METAMYELOCYTES % 1 % (0-0); MONOCYTES % (MANUAL) 8 % (0-11.0); NEUTROPHILS % (MANUAL) 70 (42-76); PLATELET ESTIMATE DECREASED
[2022-11-30] MEDS ORDERED: Sodium Phosphate 15 MMOL in IV NS 0.9% 245 ML IV ONE (16:00)
[2022-11-30 20:00] VITALS: BP 112/86; TEMP 97.8; O2SAT 97
[2022-11-30] MEDS: ENOXAPARIN SODIUM 40 MG/0.4 ML DISP.SYRIN SQ SCH (21:53)
[2022-11-30] MEDS: IV NS 0.9% 1,000 ML IV PRN (22:32)
[2022-12-01] MEDS: CEFEPIME 2 GM in IV D5W 100 ML IV SCH ×2 (01:18→09:42)
[2022-12-01 08:00] VITALS: BP 109/81; TEMP 98.2; O2SAT 94
[2022-12-01] MEDS ORDERED: JEVITY 1.2 CAL 1,000 ML BOTTLE GT PRN (08:30)
[2022-12-01] MEDS ORDERED: PROSOURCE / PROSTAT (PYXIS) 30 ML UDC GT SCH (09:00)
[2022-12-01 09:18] LABS: BASOPHILS % (AUTO) 0.2 % (0.0-2.0); EOSINOPHILS % (AUTO) 0.2 % (0.0-6.0); HEMATOCRIT 39 % (33-45); HEMOGLOBIN 12.4 g/dL (11.5-14.8); LYMPHOCYTES # (AUTO) 1.1 K/uL (0.8-4.8); LYMPHOCYTES % (AUTO) 22.9 % (20.0-44.0); MEAN CORPUSCULAR HEMOGLOBIN 29 PG (26.0-33.0); MEAN CORPUSCULAR HGB CONC 32 g/dl (31.0-36.0); MEAN CORPUSCULAR VOLUME 92 fL (82-100); MONOCYTES # (AUTO) 0.2 K/uL (0.1-1.30); MONOCYTES % (AUTO) 3.7 % (2.0-12.0); NEUTROPHILS # (AUTO) 3.4 K/uL (1.8-8.9); PLATELET COUNT (AUTO) 82 K/uL (150-450); RED BLOOD CELL COUNT(AUTO) 4.24 MIL/uL (4.0-5.2); RED CELL DISTRIBUTION WIDTH 21.9 % (11.5-15.0); WHITE BLOOD COUNT (AUTO) 4.6 K/uL (4.3-11.0)
[2022-12-01] MEDS: MULTIVIT W/MINERALS 1 TAB TABLET PO SCH (09:41)
[2022-12-01] MEDS: LETROZOLE 2.5 MG TABLET PO SCH (09:41)
[2022-12-01] MEDS: MUPIROCIN OINT 2% 22 GM TUBE NS SCH (09:42)
[2022-12-01 09:46] LABS: CALCIUM, SERUM 10.9 mg/dL (8.5-10.1); CARBON DIOXIDE 23 mmol/L (21-32); CHLORIDE 106 mmol/L (98-107); CREATININE 0.4 mg/dL (0.6-1.3); GLUCOSE 132 mg/dL (74-106); MAGNESIUM 2.5 mg/dL (1.8-2.4); PHOSPHORUS 2.5 mg/dL (2.5-4.9); POTASSIUM 3.7 mmol/L (3.5-5.1); SODIUM SERUM 139 mmol/L (136-145); UREA NITROGEN, BLOOD 16 mg/dL (7-18)
[2022-12-01] MEDS: PANTOPRAZOLE 40 MG TABLET.DR PO SCH (09:46)
[2022-12-01] MEDS: VANCOMYCIN HCL 0.75 GM in IV D5W 250 ML IV SCH (10:19)
[2022-12-01] MEDS ORDERED: NS 0.9% IV ONE ×2 (10:30→11:00)
[2022-12-01] MEDS ORDERED: ZOLEDRONIC ACID IV ONE ×2 (10:30→11:00)
[2022-12-01] MEDS ORDERED: GADOTERATE MEGLUMINE 5 MMOL/10 ML VIAL IV ONE (10:34)
[2022-12-01 13:21] LABS: ANISOCYTOSIS 1+; BAND % (MANUAL) 7 % (0.0-5.0); EOSINOPHILS % (MANUAL) 1 % (0-4); LYMPHOCYTES % (MANUAL) 25 % (16-48); MONOCYTES % (MANUAL) 4 % (0-11.0); NEUTROPHILS % (MANUAL) 63 (42-76); PLATELET ESTIMATE DECREASED
[2022-12-01] MEDS ORDERED: ZOLPIDEM TARTRATE 5 MG TABLET GT PRN (13:43)
[2022-12-01] MEDS ORDERED: MULTIVIT W/MINERALS 1 TAB TABLET GT SCH (13:43)
[2022-12-01] MEDS ORDERED: MAG HYDROX/AL HYDROX/SIMETH 30 ML UDC GT PRN (13:43)
[2022-12-01] MEDS ORDERED: LETROZOLE 2.5 MG TABLET GT SCH (13:43)
[2022-12-01] MEDS ORDERED: MAGNESIUM HYDROXIDE 30 ML UDC GT PRN (13:43)
[2022-12-01] MEDS ORDERED: ACETAMINOPHEN 650 MG/20.3 ML UDC GT PRN (14:00)
[2022-12-02] MEDS ORDERED: PANTOPRAZOLE 40 MG/PACK PACK GT SCH (09:00)
== END 2022-12-01 10:35 | DRG 871 ==
LOC: ER 19:24 → TELE 23:06 → MED 11-29 12:19
PROVIDERS: ADMIT Nurse Practitioner Acute Care; ATTEND Internal Medicine
DX: A41.9 Sepsis, unspecified organism (principal); G93.41 Metabolic encephalopathy; I21.A1 Myocardial infarction type 2; J15.69 Pneumonia due to other Gram-negative bacteria; D68.69 Other thrombophilia; E87.1 Hypo-osmolality and hyponatremia; N39.0 Urinary tract infection, site not specified; C78.00 Secondary malignant neoplasm of unspecified lung; C78.2 Secondary malignant neoplasm of pleura; C78.7 Secondary malignant neoplasm of liver and intrahepatic bile duct; C79.51 Secondary malignant neoplasm of bone; J91.0 Malignant pleural effusion; C79.89 Secondary malignant neoplasm of other specified sites; E46 Unspecified protein-calorie malnutrition; M48.55XA Collapsed vertebra, not elsewhere classified, thoracolumbar region, initial encounter for fracture; E27.40 Unspecified adrenocortical insufficiency; R64 Cachexia; E03.9 Hypothyroidism, unspecified; D64.9 Anemia, unspecified; E86.0 Dehydration; E83.52 Hypercalcemia; Z79.82 Long term (current) use of aspirin; Z74.01 Bed confinement status; Z66 Do not resuscitate; Z17.0 Estrogen receptor positive status [ER+]; M85.80 Other specified disorders of bone density and structure, unspecified site; L89.156 Pressure-induced deep tissue damage of sacral region; I95.9 Hypotension, unspecified; E88.09 Other disorders of plasma-protein metabolism, not elsewhere classified; C50.911 Malignant neoplasm of unspecified site of right female breast; R53.1 Weakness; Z79.811 Long term (current) use of aromatase inhibitors; Z96.642 Presence of left artificial hip joint; R62.7 Adult failure to thrive
CPT/HCPCS: 36415; 70450-TC; 70553-TC; 71045-TC; 71250-TC; 76856-TC; 80048-TC; 80076-TC; 80202-TC; 81001; 82040-TC; 83605-TC; 83735-TC; 84100-TC; 84484-TC; 85025-TC; 85730-TC; 87040-TC; 87081-TC; 87086-TC; 92526; 92611-TC; A4223; A6253; A9563; A9575; C9113; G0378; J0692; J1650; J2270; J2405; J2430; J3370; J3480; J3489; J3490; J7030; J7040; J7050; J7060